=== PATIENT | male | born 1995 | race Caucasian/White ===

== ENCOUNTER 2019-08-02 22:51 | Observation (INO) | payer BC, OTHER ==
--- NOTE | 2019-08-02 23:34 | EDM.PDOC ---
<Jaja Stevens R - Last Filed: 08/02/19 23:30> ED HPI GENERAL MEDICAL PROBLEM - General Chief Complaint: Abdominal Pain Stated Complaint: PT HAS STOMACH PAIN Time Seen by Provider: 08/03/19 00:51 Source of Information: Reports: Patient History Limitations: Reports: No Limitations - History of Present Illness INITIAL COMMENTS - FREE TEXT/NARRATIVE: Presents reporting abdominal pain, nausea and vomiting. The patient states that in 2014 he ingested a foreign body and had a colon perforation. He had a colon resection. Subsequently he had bowel obstructions which cleared without surgery. Later he had an appendectomy and they also "cleaned up the abdomen". At 5 PM today he started with some lower abdominal pain accompanied by nausea and vomiting bile 4. He had a loose brown stool this morning but none since. He denies fever, dysuria. mid abdomen Pain Score (Numeric/FACES): 7 - Related Data Allergies Allergy/AdvReac Type Severity Reaction Status Date / Time No Known Allergies Allergy Verified 08/02/19 23:00 Home Meds: Home Meds . [No Known Home Meds] 08/02/19 [History] Past Medical History HEENT History: Reports: None Cardiovascular History: Reports: None Respiratory History: Reports: None Gastrointestinal History: Reports: Other (See Below) Genitourinary History: Reports: None Musculoskeletal History: Reports: None Psychiatric History: Reports: None Endocrine/Metabolic History: Reports: None Hematologic History: Reports: None Oncologic (Cancer) History: Reports: None Dermatologic History: Reports: None - Infectious Disease History Infectious Disease History: Reports: Chicken Pox - Past Surgical History GI Surgical History: Reports: Appendectomy Other GI Surgeries/Procedures: bowel ressection 2013 Social & Family History - Family History Family Medical History: Noncontributory - Tobacco Use Smoking Status *Q: Current Every Day Smoker Years of Tobacco use: 7 Packs/Tins Daily: 1 - Recreational Drug Use Recreational Drug Use: No ED ROS GENERAL - Review of Systems Review Of Systems: ROS reveals no pertinent complaints other than HPI. ED EXAM, GI/ABD - Physical Exam Exam: See Below Exam Limited By: No Limitations General Appearance: Alert, No Apparent Distress Ears: Normal External Exam Nose: Normal Inspection Throat/Mouth: Normal Inspection Head: Atraumatic, Normocephalic Neck: Normal Inspection Respiratory/Chest: No Respiratory Distress, Lungs Clear, Normal Breath Sounds Cardiovascular: Normal Peripheral Pulses, Regular Rate, Rhythm, No Murmur GI/Abdominal Exam: Normal Bowel Sounds, Soft, No Distention, Tender (Mild across lower abdomen) Back Exam: Normal Inspection Extremities: Normal Inspection Neurological: Alert, Oriented Psychiatric: Normal Affect, Normal Mood Skin Exam: Warm, Dry, Intact, Normal Color, No Rash Lymphatic: No Adenopathy Course - Vital Signs Last Recorded V/S: Last Vital Signs Temp 36.2 C 08/02/19 23:01 Pulse 81 08/02/19 23:01 Resp 14 08/02/19 23:01 BP 130/85 08/02/19 23:01 Pulse Ox 98 08/02/19 23:01 - Orders/Labs/Meds Labs: Laboratory Tests 08/02/19 08/02/19 08/02/19 Range/Units 23:10 23:10 23:52 WBC 8.88 (4.0-11.0) K/uL RBC 4.88 (4.50-5.90) M/uL Hgb 15.2 (13.0-17.0) g/dL Hct 44.0 (38.0-50.0) % MCV 90.2 (80.0-98.0) fL MCH 31.1 (27.0-32.0) pg MCHC 34.5 (31.0-37.0) g/dL RDW Std Deviation 43.0 (28.0-62.0) fl RDW Coeff of Lj 13 (11.0-15.0) % Plt Count 342 (150-400) K/uL MPV 10.30 (7.40-12.00) fL Neut % (Auto) 69.9 (48.0-80.0) % Lymph % (Auto) 16.9 (16.0-40.0) % [place] % (Auto) 7.5 (0.0-15.0) % Eos % (Auto) 5.1 (0.0-7.0) % Baso % (Auto) 0.6 (0.0-1.5) % Neut # (Auto) 6.2 H (1.4-5.7) K/uL Lymph # (Auto) 1.5 (0.6-2.4) K/uL [place] # (Auto) 0.7 (0.0-0.8) K/uL Eos # (Auto) 0.5 (0.0-0.7) K/uL Baso # (Auto) 0.1 (0.0-0.1) K/uL Nucleated RBC % 0.0 /100WBC Nucleated RBCs # 0 K/uL Sodium 141 (136-148) mmol/L Potassium 3.7 (3.5-5.1) mmol/L Chloride 104 (98-107) mmol/L Carbon Dioxide 26.2 (21.0-32.0) mmol/L BUN 16 (7.0-18.0) mg/dL Creatinine 1.2 (0.8-1.3) mg/dL Est Cr Clr Drug Dosing 87.54 mL/min Estimated GFR (MDRD) > 60.0 ml/min Glucose 113 H (74-106) mg/dL Calcium 9.3 (8.5-10.1) mg/dL Total Bilirubin 0.6 (0.2-1.0) mg/dL AST 16 (15-37) IU/L ALT 19 (14-63) IU/L Alkaline Phosphatase 70 (46-116) U/L Total Protein 7.9 (6.4-8.2) g/dL Albumin 4.3 (3.4-5.0) g/dL Globulin 3.6 (2.6-4.0) g/dL Albumin/Globulin Ratio 1.2 (0.9-1.6) Urine Color YELLOW Urine Appearance CLEAR Urine pH 6.0 (5.0-8.0) Ur Specific [place] 1.025 (1.001-1.035) Urine Protein NEGATIVE (NEGATIVE) mg/dL Urine Glucose (UA) NEGATIVE (NEGATIVE) mg/dL Urine Ketones 15 H (NEGATIVE) mg/dL Urine Occult Blood NEGATIVE (NEGATIVE) Urine Nitrite NEGATIVE (NEGATIVE) Urine Bilirubin NEGATIVE (NEGATIVE) Urine Urobilinogen 0.2 (<2.0) EU/dL Ur Leukocyte Esterase NEGATIVE (NEGATIVE) Urine RBC NONE SEEN (0-2/HPF) Urine WBC 0-1 (0-5/HPF) Ur Epithelial Cells RARE (NONE-FEW) Urine Bacteria RARE (NEGATIVE) Urine Mucus LIGHT (NONE-MOD) Meds: Medications Discontinued Medications Generic Name Dose Route Start Last Admin Trade Name Freq PRN Reason Stop Dose Admin Sodium Chloride 1,000 mls @ 999 mls/hr 08/02/19 23:42 08/02/19 23:58 Normal Saline IV 08/03/19 00:42 999 mls/hr STAT ONE Administration Ondansetron HCl 4 mg 08/02/19 23:43 08/02/19 23:58 Zofran IVPUSH 08/02/19 23:44 4 mg ONETIME ONE Administration Departure - Departure Disposition: Refer to Observation Clinical Impression: Small bowel obstruction - Discharge Information Referrals: PCP,None [Primary Care Provider] - Forms: ED Department Discharge <Garry Osborne - Last Filed: 08/03/19 00:51> Course - Vital Signs Text/Narrative:: Patient's emergency murmur courses been unremarkable he is comfortable sleeping repeat abdominal exam is without acute findings CT demonstrates dilated loops of bowel consistent with possible small bowel obstruction small free fluid was noted no other acute findings reported I discussed case with general surgery and hospitalist he'll be admitted for observation with diagnosis of small bowel obstruction Departure - Departure Time of Disposition: 00:51 Condition: Good
[2019-08-02] MEDS ORDERED: Sodium Chloride 0.9% 1,000 ML IV ONE (23:42)
[2019-08-02] MEDS ORDERED: Ondansetron 4 MG/2 ML SDV IVPUSH ONE (23:43)
[2019-08-02 23:44] LABS: BLOOD UREA NITROGEN,BUN 16 mg/dL (7.0-18.0); CARBON DIOXIDE,CO2 26.2 mmol/L (21.0-32.0); CHLORIDE,CL 104 mmol/L (98-107); GLUCOSE RANDOM 113 mg/dL (74-106); POTASSIUM,K 3.7 mmol/L (3.5-5.1); SODIUM,NA 141 mmol/L (136-148)
--- NOTE | 2019-08-03 00:38 | CT ---
INDICATION: Abdominal pain. History of colonic surgery and obstruction. TECHNIQUE: CT abdomen and pelvis without contrast. COMPARISON: None. FINDINGS: Lower chest: Unremarkable. Liver: Normal in contour with an 11 millimeter cyst in the right lobe of the liver. Gallbladder and bile ducts: No stones or inflammation. No biliary dilatation. Pancreas: Unremarkable. No mass or inflammation. Spleen: Normal in size. No masses. Adrenal glands: Normal in size. No nodules. Kidneys: 1 millimeter nonobstructing stone right kidney without evidence of ureteral stone or hydronephrosis. Left kidney is normal in contour without hydronephrosis. GI tract: Stomach is unremarkable. Small free fluid in the deep pelvis with a suture line in the right lower quadrant there are mildly dilated loops of small bowel with transition in the pelvis with the remainder of the small bowel decompressed. Vasculature: Unremarkable. Pelvis: Unremarkable. No pelvic masses. Bones: Unremarkable for age. IMPRESSION: 1. Status post small bowel surgery with dilated loops of small bowel in the pelvis consistent with a small-bowel obstruction. Etiology is likely adhesions. Associated small free fluid. 2. Nephrolithiasis without ureteral stone or hydronephrosis. Please note that all CT scans at this facility use dose modulation, iterative reconstruction, and/or weight-based dosing when appropriate to reduce radiation dose to as low as reasonably achievable. Dictated by Gonzalo Ram MD @ Aug 03 2019 12:31AM Signed by Dr. Gonzalo Ram @ Aug 03 2019 12:36AM
[2019-08-03] MEDS ORDERED: Ondansetron 4 MG/2 ML SDV IVPUSH PRN (02:06)
[2019-08-03] MEDS ORDERED: Morphine 2 MG/ML Syringe IVPUSH PRN (02:07)
[2019-08-03] MEDS: Sodium Chloride 0.9% 1,000 ML IV SCH ×2 (02:54→10:21)
[2019-08-03 05:28] LABS: BLOOD UREA NITROGEN,BUN 13 mg/dL (7.0-18.0); CARBON DIOXIDE,CO2 26.6 mmol/L (21.0-32.0); CHLORIDE,CL 108 mmol/L (98-107); GLUCOSE RANDOM 94 mg/dL (74-106); POTASSIUM,K 3.8 mmol/L (3.5-5.1); SODIUM,NA 143 mmol/L (136-148)
--- NOTE | 2019-08-03 07:54 | PCM.HP.2 ---
H&P History of Present Illness - General Date of Service: 08/03/19 Admit Problem/Dx: Admission Diagnosis/Problem Admission Diagnosis/Problem Small bowel obstruction Source of Information: Patient History Limitations: Reports: No Limitations - History of Present Illness Initial Comments - Free Text/Narative: This 23 year old male with pmh of colon resection after accidentally swallowing wire brush piece in 2008, SBO x 2 afterwards and then appendectomy with lysis of adhesion in 2013 presented to the ED last evening with sudden abdominal pain around 5 pm. He reports the pain is located in his left lower abdomen with associated nausea and vomiting. His last BM was brown more loose than normal and it was yesterday morning. He felt like it was loose but still felt bloated and somewhat constipated. He denies fevers, chills, chest pain or SOB. He has no urinary concerns. No black or bloody stools. He otherwise was doing well prior to this. He rpeorts no other medical history. He drinks alcohol socially, chews tobacco 1/2 tin a day, and no recreational drug use. In the ED labwork WNL. UA negative. Vital signs stable. He was treated with zofran. Abdomen/pelvis CT revealed dilated loops of small bowel in the pelvis consistent with a small bowel obstruction, small free fluid in pelvis. He was admitted observation for SBO. Dr Hoffman consulted. mid abdomen Pain Score (Numeric/FACES): 5 - Related Data Allergies/Adverse Reactions: Allergies Allergy/AdvReac Type Severity Reaction Status Date / Time No Known Allergies Allergy Verified 08/03/19 02:45 Home Medications: Home Meds . [No Known Home Meds] 08/02/19 [History] Past Medical History HEENT History: Reports: None Cardiovascular History: Reports: None. Denies: High Cholesterol, Hypertension Respiratory History: Reports: None. Denies: Asthma Gastrointestinal History: Reports: Bowel Obstruction Genitourinary History: Reports: None Musculoskeletal History: Reports: None Psychiatric History: Reports: None Endocrine/Metabolic History: Reports: None. Denies: Diabetes, Type II, Obesity/ BMI 30+ Hematologic History: Reports: None Oncologic (Cancer) History: Reports: None Dermatologic History: Reports: None - Infectious Disease History Infectious Disease History: Reports: Chicken Pox - Past Surgical History GI Surgical History: Reports: Appendectomy, Lysis of Adhesions (2014 with appendectomy) Other GI Surgeries/Procedures: bowel resection 2008 Social & Family History - Family History Family Medical History: Noncontributory - Tobacco Use Smoking Status *Q: Never Smoker Tobacco Use Within Last Twelve Months: Smokeless Tobacco (1/2 tin daily) Years of Tobacco use: 7 Packs/Tins Daily: 1 - Caffeine Use Caffeine Use: Reports: Soda - Alcohol Use Alcohol Use Frequency: Socially - Recreational Drug Use Recreational Drug Use: No - Living Situation & Occupation 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 Denies: Fever, Chills, Malaise, Weakness HEENT: Reports: No Symptoms. Denies: Headaches, Sinus Congestion, Sore Throat Pulmonary: Reports: No Symptoms. Denies: Shortness of Breath Cardiovascular: Reports: No Symptoms. Denies: Chest Pain Gastrointestinal: Reports: Abdominal Pain (LLQ, feeling improved now. ), Nausea , Vomiting. Denies: Black Stool, Bloody Stool Genitourinary: Reports: No Symptoms. Denies: Dysuria, Frequency, Burning Skin: Reports: No Symptoms Psychiatric: Reports: No Symptoms Neurological: Reports: No Symptoms Hematologic/Lymphatic: Reports: No Symptoms Immunologic: Reports: No Symptoms Exam - Exam Exam: See Below - Vital Signs Vital Signs: Last Vital Signs Temp 98.4 F 08/03/19 07:49 Pulse 63 08/03/19 07:49 Resp 16 08/03/19 07:49 BP 107/44 L 08/03/19 07:49 Pulse Ox 96 08/03/19 07:49 Weight: 65.635 kg - Exam General: Alert, Oriented, Cooperative HEENT: Conjunctiva Clear, Mucosa Moist & [place], Posterior Pharynx Clear Lungs: Clear to Auscultation, Normal Respiratory Effort Cardiovascular: Regular Rate, Regular Rhythm GI/Abdominal Exam: Normal Bowel Sounds, Soft, No Distention, No Mass, Tender ( slight tenderness to LLQ) Back Exam: Normal Inspection, Full Range of Motion Extremities: Normal Inspection, Normal Range of Motion, Non-Tender, No Pedal Edema Neuro Extensive - Mental Status: Alert, Oriented x3 Neuro Extensive - Motor, Sensory, Reflexes: CN II-XII Intact, Normal Gait Psychiatric: Alert, Normal Affect, Normal Mood - Patient Data Lab Results Last 24 hrs: Laboratory Results - last 24 hr 08/02/19 08/02/19 08/02/19 Range/Units 23:10 23:10 23:52 WBC 8.88 (4.0-11.0) K/uL RBC 4.88 (4.50-5.90) M/uL Hgb 15.2 (13.0-17.0) g/dL Hct 44.0 (38.0-50.0) % MCV 90.2 (80.0-98.0) fL MCH 31.1 (27.0-32.0) pg MCHC 34.5 (31.0-37.0) g/dL RDW Std Deviation 43.0 (28.0-62.0) fl RDW Coeff of Lj 13 (11.0-15.0) % Plt Count 342 (150-400) K/uL MPV 10.30 (7.40-12.00) fL Neut % (Auto) 69.9 (48.0-80.0) % Lymph % (Auto) 16.9 (16.0-40.0) % [place] % (Auto) 7.5 (0.0-15.0) % Eos % (Auto) 5.1 (0.0-7.0) % Baso % (Auto) 0.6 (0.0-1.5) % Neut # (Auto) 6.2 H (1.4-5.7) K/uL Lymph # (Auto) 1.5 (0.6-2.4) K/uL [place] # (Auto) 0.7 (0.0-0.8) K/uL Eos # (Auto) 0.5 (0.0-0.7) K/uL Baso # (Auto) 0.1 (0.0-0.1) K/uL Nucleated RBC % 0.0 /100WBC Nucleated RBCs # 0 K/uL Sodium 141 (136-148) mmol/L Potassium 3.7 (3.5-5.1) mmol/L Chloride 104 (98-107) mmol/L Carbon Dioxide 26.2 (21.0-32.0) mmol/L BUN 16 (7.0-18.0) mg/dL Creatinine 1.2 (0.8-1.3) mg/dL Est Cr Clr Drug Dosing 87.54 mL/min Estimated GFR (MDRD) > 60.0 ml/min Glucose 113 H (74-106) mg/dL Calcium 9.3 (8.5-10.1) mg/dL Total Bilirubin 0.6 (0.2-1.0) mg/dL AST 16 (15-37) IU/L ALT 19 (14-63) IU/L Alkaline Phosphatase 70 (46-116) U/L Total Protein 7.9 (6.4-8.2) g/dL Albumin 4.3 (3.4-5.0) g/dL Globulin 3.6 (2.6-4.0) g/dL Albumin/Globulin Ratio 1.2 (0.9-1.6) Urine Color YELLOW Urine Appearance CLEAR Urine pH 6.0 (5.0-8.0) Ur Specific [place] 1.025 (1.001-1.035) Urine Protein NEGATIVE (NEGATIVE) mg/dL Urine Glucose (UA) NEGATIVE (NEGATIVE) mg/dL Urine Ketones 15 H (NEGATIVE) mg/dL Urine Occult Blood NEGATIVE (NEGATIVE) Urine Nitrite NEGATIVE (NEGATIVE) Urine Bilirubin NEGATIVE (NEGATIVE) Urine Urobilinogen 0.2 (<2.0) EU/dL Ur Leukocyte Esterase NEGATIVE (NEGATIVE) Urine RBC NONE SEEN (0-2/HPF) Urine WBC 0-1 (0-5/HPF) Ur Epithelial Cells RARE (NONE-FEW) Urine Bacteria RARE (NEGATIVE) Urine Mucus LIGHT (NONE-MOD) 08/03/19 08/03/19 Range/Units 05:05 05:05 WBC 7.63 (4.0-11.0) K/uL RBC 4.47 L (4.50-5.90) M/uL Hgb 13.7 (13.0-17.0) g/dL Hct 40.4 (38.0-50.0) % MCV 90.4 (80.0-98.0) fL MCH 30.6 (27.0-32.0) pg MCHC 33.9 (31.0-37.0) g/dL RDW Std Deviation 42.7 (28.0-62.0) fl RDW Coeff of Lj 13 (11.0-15.0) % Plt Count 336 (150-400) K/uL MPV 10.20 (7.40-12.00) fL Neut % (Auto) 64.2 (48.0-80.0) % Lymph % (Auto) 23.7 (16.0-40.0) % [place] % (Auto) 6.6 (0.0-15.0) % Eos % (Auto) 4.8 (0.0-7.0) % Baso % (Auto) 0.7 (0.0-1.5) % Neut # (Auto) 4.9 (1.4-5.7) K/uL Lymph # (Auto) 1.8 (0.6-2.4) K/uL [place] # (Auto) 0.5 (0.0-0.8) K/uL Eos # (Auto) 0.4 (0.0-0.7) K/uL Baso # (Auto) 0.1 (0.0-0.1) K/uL Nucleated RBC % 0.0 /100WBC Nucleated RBCs # 0 K/uL Sodium 143 (136-148) mmol/L Potassium 3.8 (3.5-5.1) mmol/L Chloride 108 H (98-107) mmol/L Carbon Dioxide 26.6 (21.0-32.0) mmol/L BUN 13 (7.0-18.0) mg/dL Creatinine 1.0 (0.8-1.3) mg/dL Est Cr Clr Drug Dosing 104.83 mL/min Estimated GFR (MDRD) > 60.0 ml/min Glucose 94 (74-106) mg/dL Calcium 8.2 L (8.5-10.1) mg/dL Total Bilirubin (0.2-1.0) mg/dL AST (15-37) IU/L ALT (14-63) IU/L Alkaline Phosphatase (46-116) U/L Total Protein (6.4-8.2) g/dL Albumin (3.4-5.0) g/dL Globulin (2.6-4.0) g/dL Albumin/Globulin Ratio (0.9-1.6) Urine Color Urine Appearance Urine pH (5.0-8.0) Ur Specific [place] (1.001-1.035) Urine Protein (NEGATIVE) mg/dL Urine Glucose (UA) (NEGATIVE) mg/dL Urine Ketones (NEGATIVE) mg/dL Urine Occult Blood (NEGATIVE) Urine Nitrite (NEGATIVE) Urine Bilirubin (NEGATIVE) Urine Urobilinogen (<2.0) EU/dL Ur Leukocyte Esterase (NEGATIVE) Urine RBC (0-2/HPF) Urine WBC (0-5/HPF) Ur Epithelial Cells (NONE-FEW) Urine Bacteria (NEGATIVE) Urine Mucus (NONE-MOD) Result Diagrams: 08/03/19 05:05 08/03/19 05:05 - Problem List (1) Small bowel obstruction SNOMED Code(s): 221924458 ICD Code: K56.609 - UNSP INTESTNL OBST, UNSP TO PARTIAL VERSUS COMPLETE OBST Status: Acute Priority: Medium Current Visit: Yes Problem List Initiated/Reviewed/Updated: Yes Orders Last 24hrs: Active Orders 24 hr Category Date Time Status Patient Status [ADT] Stat ADT 08/03/19 00:52 Active Notify Provider Consults [RC] ASDIRECTED Care 08/03/19 00:54 Active Consult to Physician [CONS] Stat Cons 08/03/19 00:53 Active NPO Now [Nothing per Oral Now Diet] [DIET] Diet 08/03/19 Breakfast Active Morphine Med 08/03/19 02:07 Active 2 mg IVPUSH Q2H PRN Ondansetron [Zofran] Med 08/03/19 02:06 Active 4 mg IVPUSH Q4H PRN Sodium Chloride 0.9% [Normal Saline] 1,000 ml Med 08/03/19 02:15 Active IV ASDIRECTED Medication Orders Sodium Chloride (Normal Saline) 1,000 mls @ 125 mls/hr IV ASDIRECTED BRIGIDA Last Admin: 08/03/19 02:54 Dose: 125 mls/hr Morphine Sulfate (Morphine) 2 mg IVPUSH Q2H PRN PRN Reason: Pain Ondansetron HCl (Zofran) 4 mg IVPUSH Q4H PRN PRN Reason: Nausea Assessment/Plan Comment:: This 23 year old male with pmh of SBO and bowel resection admitted for SBO 1. SBO: Dr Hoffman, General surgery consulted. Abd flat and upright this morning, reveals normal bowel gas pattern. bowel sounds normal this am. Not passing gas or having BM yet. Feeling improved. No longer nauseated and pain is improving. NPO with ice chips. Repeat Abd xray in am. Monitor labwork. I appreciate Dr Hoffman's assistance with this patient. Advance diet per recommendations VTE prophylaxis: SCDs and encourage ambulation. Dispo: 1-2 days. - Mortality Measure Prognosis:: Good
--- NOTE | 2019-08-03 09:03 | PCM.CONS ---
H&P History of Present Illness - General Date of Service: 08/03/19 Admit Problem/Dx: Admission Diagnosis/Problem Admission Diagnosis/Problem Abdominal pain with bloatingk, nausea and vomiting. Hx of perforated small bowel requiring laparotomy in 2009 and laparoscopic appendectomy in 2013. Source of Information: Patient History Limitations: Reports: No Limitations - History of Present Illness Initial Comments - Free Text/Narative: 23 y/o gentleman admitted via ER early this am with abdominal bloating and nausea and vomiting. Hx of small obstruction in the past. In 2009 he underwent an emergency laparotomy for perforated small bowel from a wire bristle off a barbecue grill brush. Laparoscopic appendectomy in 2013. Has had episodes of partial SBO in the past. States he is feeling much better this am. Rates pain "0-1". No nausea or vomiting. Symptom Onset Date: 08/02/19 Duration of Symptoms: Reports: Hour(s):, Recurring Location: Reports: Abdomen Quality: Reports: Same as Previous Episode Improves with: Reports: None Worsens with: Reports: None Context: Reports: Sick Contact Associated Symptoms: Reports: Loss of Appetite, Nausea/Vomiting mid abdomen Pain Score (Numeric/FACES): 5 - Related Data Allergies/Adverse Reactions: Allergies Allergy/AdvReac Type Severity Reaction Status Date / Time No Known Allergies Allergy Verified 08/03/19 02:45 Home Medications: Home Meds . [No Known Home Meds] 08/02/19 [History] Past Medical History HEENT History: Reports: None Cardiovascular History: Reports: None Respiratory History: Reports: None Gastrointestinal History: Reports: Other (See Below) Genitourinary History: Reports: None Musculoskeletal History: Reports: None Psychiatric History: Reports: None Endocrine/Metabolic History: Reports: None Hematologic History: Reports: None Oncologic (Cancer) History: Reports: None Dermatologic History: Reports: None - Infectious Disease History Infectious Disease History: Reports: Chicken Pox - Past Surgical History GI Surgical History: Reports: Appendectomy Other GI Surgeries/Procedures: bowel ressection 2013 Social & Family History - Family History Family Medical History: Noncontributory - Tobacco Use Smoking Status *Q: Never Smoker Years of Tobacco use: 7 Packs/Tins Daily: 1 - Caffeine Use Caffeine Use: Reports: Soda - Recreational Drug Use Recreational Drug Use: No H&P Review of Systems - Review of Systems: Review Of Systems: See Below General: Reports: Decreased Appetite. Denies: Fever, Chills, Malaise HEENT: Reports: No Symptoms Pulmonary: Denies: Shortness of Breath, Wheezing Cardiovascular: Denies: Chest Pain, Palpitations Gastrointestinal: Reports: Abdominal Pain, Anorexia, Constipation, Distension ( resolved). Denies: Diarrhea, Flatus Genitourinary: Denies: Dysuria, Frequency, Burning Musculoskeletal: Reports: No Symptoms Skin: Reports: No Symptoms Neurological: Reports: No Symptoms Hematologic/Lymphatic: Reports: No Symptoms Immunologic: Reports: No Symptoms Exam - Exam Exam: See Below - Vital Signs Vital Signs: Last Vital Signs Temp 98.4 F 08/03/19 07:49 Pulse 63 08/03/19 07:49 Resp 16 08/03/19 07:49 BP 107/44 L 08/03/19 07:49 Pulse Ox 96 08/03/19 07:49 Weight: 144 lb 11.2 oz - Exam Quality Assessment: No: Supplemental Oxygen General: Alert, Oriented, Cooperative, Mild Distress HEENT: PERRLA, Hearing Intact, Mucosa Moist & [place], Nares Patent, Normal Nasal Septum, Posterior Pharynx Clear, Conjunctiva Clear, EOMI, EACs Clear, TMs Clear Neck: Supple, Trachea Midline, 2 Lungs: Clear to Auscultation, Normal Respiratory Effort Cardiovascular: Regular Rate, Regular Rhythm GI/Abdominal Exam: Soft, Non-Tender, No Distention, Abnormal Bowel Sounds ( hypoactive). No: Guarding, Rigid, Rebound, Mass (Male) Exam: Deferred Rectal (Males) Exam: Deferred Back Exam: Normal Inspection, Full Range of Motion Extremities: Normal Inspection, Normal Range of Motion, Non-Tender, No Pedal Edema, Normal Capillary Refill Peripheral Pulses: 4+: Posterior Tibial (L), Posterior Tibial (R), Dorsalis Pedis (L), Dorsalis Pedis (R) Skin: Warm, Dry, Intact Neurological: Cranial Nerves Intact Neuro Extensive - Mental Status: Alert, Oriented x3, Normal Mood/Affect, Normal Cognition Psychiatric: Alert, Normal Affect, Normal Mood - Patient Data Lab Results Last 24 hrs: Laboratory Results - last 24 hr 08/02/19 08/02/19 08/02/19 Range/Units 23:10 23:10 23:52 WBC 8.88 (4.0-11.0) K/uL RBC 4.88 (4.50-5.90) M/uL Hgb 15.2 (13.0-17.0) g/dL Hct 44.0 (38.0-50.0) % MCV 90.2 (80.0-98.0) fL MCH 31.1 (27.0-32.0) pg MCHC 34.5 (31.0-37.0) g/dL RDW Std Deviation 43.0 (28.0-62.0) fl RDW Coeff of Lj 13 (11.0-15.0) % Plt Count 342 (150-400) K/uL MPV 10.30 (7.40-12.00) fL Neut % (Auto) 69.9 (48.0-80.0) % Lymph % (Auto) 16.9 (16.0-40.0) % [place] % (Auto) 7.5 (0.0-15.0) % Eos % (Auto) 5.1 (0.0-7.0) % Baso % (Auto) 0.6 (0.0-1.5) % Neut # (Auto) 6.2 H (1.4-5.7) K/uL Lymph # (Auto) 1.5 (0.6-2.4) K/uL [place] # (Auto) 0.7 (0.0-0.8) K/uL Eos # (Auto) 0.5 (0.0-0.7) K/uL Baso # (Auto) 0.1 (0.0-0.1) K/uL Nucleated RBC % 0.0 /100WBC Nucleated RBCs # 0 K/uL Sodium 141 (136-148) mmol/L Potassium 3.7 (3.5-5.1) mmol/L Chloride 104 (98-107) mmol/L Carbon Dioxide 26.2 (21.0-32.0) mmol/L BUN 16 (7.0-18.0) mg/dL Creatinine 1.2 (0.8-1.3) mg/dL Est Cr Clr Drug Dosing 87.54 mL/min Estimated GFR (MDRD) > 60.0 ml/min Glucose 113 H (74-106) mg/dL Calcium 9.3 (8.5-10.1) mg/dL Total Bilirubin 0.6 (0.2-1.0) mg/dL AST 16 (15-37) IU/L ALT 19 (14-63) IU/L Alkaline Phosphatase 70 (46-116) U/L Total Protein 7.9 (6.4-8.2) g/dL Albumin 4.3 (3.4-5.0) g/dL Globulin 3.6 (2.6-4.0) g/dL Albumin/Globulin Ratio 1.2 (0.9-1.6) Urine Color YELLOW Urine Appearance CLEAR Urine pH 6.0 (5.0-8.0) Ur Specific [place] 1.025 (1.001-1.035) Urine Protein NEGATIVE (NEGATIVE) mg/dL Urine Glucose (UA) NEGATIVE (NEGATIVE) mg/dL Urine Ketones 15 H (NEGATIVE) mg/dL Urine Occult Blood NEGATIVE (NEGATIVE) Urine Nitrite NEGATIVE (NEGATIVE) Urine Bilirubin NEGATIVE (NEGATIVE) Urine Urobilinogen 0.2 (<2.0) EU/dL Ur Leukocyte Esterase NEGATIVE (NEGATIVE) Urine RBC NONE SEEN (0-2/HPF) Urine WBC 0-1 (0-5/HPF) Ur Epithelial Cells RARE (NONE-FEW) Urine Bacteria RARE (NEGATIVE) Urine Mucus LIGHT (NONE-MOD) 08/03/19 08/03/19 Range/Units 05:05 05:05 WBC 7.63 (4.0-11.0) K/uL RBC 4.47 L (4.50-5.90) M/uL Hgb 13.7 (13.0-17.0) g/dL Hct 40.4 (38.0-50.0) % MCV 90.4 (80.0-98.0) fL MCH 30.6 (27.0-32.0) pg MCHC 33.9 (31.0-37.0) g/dL RDW Std Deviation 42.7 (28.0-62.0) fl RDW Coeff of Lj 13 (11.0-15.0) % Plt Count 336 (150-400) K/uL MPV 10.20 (7.40-12.00) fL Neut % (Auto) 64.2 (48.0-80.0) % Lymph % (Auto) 23.7 (16.0-40.0) % [place] % (Auto) 6.6 (0.0-15.0) % Eos % (Auto) 4.8 (0.0-7.0) % Baso % (Auto) 0.7 (0.0-1.5) % Neut # (Auto) 4.9 (1.4-5.7) K/uL Lymph # (Auto) 1.8 (0.6-2.4) K/uL [place] # (Auto) 0.5 (0.0-0.8) K/uL Eos # (Auto) 0.4 (0.0-0.7) K/uL Baso # (Auto) 0.1 (0.0-0.1) K/uL Nucleated RBC % 0.0 /100WBC Nucleated RBCs # 0 K/uL Sodium 143 (136-148) mmol/L Potassium 3.8 (3.5-5.1) mmol/L Chloride 108 H (98-107) mmol/L Carbon Dioxide 26.6 (21.0-32.0) mmol/L BUN 13 (7.0-18.0) mg/dL Creatinine 1.0 (0.8-1.3) mg/dL Est Cr Clr Drug Dosing 104.83 mL/min Estimated GFR (MDRD) > 60.0 ml/min Glucose 94 (74-106) mg/dL Calcium 8.2 L (8.5-10.1) mg/dL Total Bilirubin (0.2-1.0) mg/dL AST (15-37) IU/L ALT (14-63) IU/L Alkaline Phosphatase (46-116) U/L Total Protein (6.4-8.2) g/dL Albumin (3.4-5.0) g/dL Globulin (2.6-4.0) g/dL Albumin/Globulin Ratio (0.9-1.6) Urine Color Urine Appearance Urine pH (5.0-8.0) Ur Specific [place] (1.001-1.035) Urine Protein (NEGATIVE) mg/dL Urine Glucose (UA) (NEGATIVE) mg/dL Urine Ketones (NEGATIVE) mg/dL Urine Occult Blood (NEGATIVE) Urine Nitrite (NEGATIVE) Urine Bilirubin (NEGATIVE) Urine Urobilinogen (<2.0) EU/dL Ur Leukocyte Esterase (NEGATIVE) Urine RBC (0-2/HPF) Urine WBC (0-5/HPF) Ur Epithelial Cells (NONE-FEW) Urine Bacteria (NEGATIVE) Urine Mucus (NONE-MOD) Result Diagrams: 08/03/19 05:05 08/03/19 05:05 Consult PN Assessment/Plan Procedures: Procedures MRI JNT OF LWR EXTRE W/O DYE (04/22/18) (1) Small bowel obstruction SNOMED Code(s): 643892122 Code(s): K56.609 - UNSP INTESTNL OBST, UNSP TO PARTIAL VERSUS COMPLETE OBST Priority: Medium Current Visit: Yes Problem List Initiated/Reviewed/Updated: Yes Plan: Suspect he may have had a partial SBO. This morning his abdomen is soft and flat. No tenderness. Bowel sounds are hypoactive. RECOMMEND: Flat/upright abdomen serially. Once he starts passing gas, I think he could start liquids and advance as tolerated.
--- NOTE | 2019-08-03 09:55 | CR ---
Indication: Small bowel obstruction Technique: Abdomen 3 view Comparison: CT abdomen pelvis August 02, 2019 Findings/Impression: Bowel: Bowel pattern appears normal. No obstructive changes by x-ray. Minimal colonic stool. Soft tissues: No sign of free air. No sign of soft tissue mass. No suspicious calcifications. Bones: Unremarkable for age. Dictated by Ronnie Trent MD @ Aug 03 2019 9:48AM Signed by Dr. Ronnie Trent @ Aug 03 2019 9:53AM
--- NOTE | 2019-08-03 16:52 | PCM.DCSUM1 ---
Discharge Summary - Hospital Course Brief History: This 23 year old male with pmh of colon resection after accidentally swallowing wire brush piece in 2008, SBO x 2 afterwards and then appendectomy with lysis of adhesion in 2013 presented to the ED last evening with sudden abdominal pain around 5 pm. He reports the pain is located in his left lower abdomen with associated nausea and vomiting. His last BM was brown more loose than normal and it was yesterday morning. He felt like it was loose but still felt bloated and somewhat constipated. He denies fevers, chills, chest pain or SOB. He has no urinary concerns. No black or bloody stools. He otherwise was doing well prior to this. He rpeorts no other medical history. He drinks alcohol socially, chews tobacco 1/2 tin a day, and no recreational drug use. In the ED labwork WNL. UA negative. Vital signs stable. He was treated with zofran. Abdomen/pelvis CT revealed dilated loops of small bowel in the pelvis consistent with a small bowel obstruction, small free fluid in pelvis. He was admitted observation for SBO. Dr Hoffman consulted. Modified [place] Scale: No Symptoms at All Modified [place] Scale Score: 0 - Discharge Data Discharge Date: 08/03/19 Discharge Disposition: Home, Self-Care 01 Condition: Stable - Referral to Home Health Primary Care Physician: PCP None - Discharge Diagnosis/Problem(s) (1) Small bowel obstruction SNOMED Code(s): 694723602 ICD Code: K56.609 - UNSP INTESTNL OBST, UNSP TO PARTIAL VERSUS COMPLETE OBST Status: Acute Priority: Medium Current Visit: Yes - Patient Summary/Data Consults: Consultations 08/03/19 00:53 Consult to Physician [CONS] Stat - Patient Instructions Diet: Full Liquid Diet, GI Soft/Low Residue/Low Fiber Diet, Other: FUL for 24 hours slowly advance to soft GI low fiber Activity: As Tolerated Showering/Bathing: May Shower Notify Provider of: Fever, Increased Pain, Swelling and Redness, Drainage, Nausea and/or Vomiting - Discharge Plan *PRESCRIPTION DRUG MONITORING PROGRAM REVIEWED*: Not Applicable *COPY OF PRESCRIPTION DRUG MONITORING REPORT IN PATIENT PHIL: Not Applicable Home Medications: Home Meds . [No Known Home Meds] 08/02/19 [History] Oxygen Therapy Mode: Room Air Patient Handouts: Small Bowel Obstruction, [id number] Referrals: Denny Rogers MD [Physician] - 08/10/19 9:30 am (Arrive 15 minutes early with photo ID and insurarnce card.) - Discharge Summary/Plan Comment DC Time >30 min.: No Discharge Summary/Plan Comment: Admitting Diagnoses: SBO Discharge Diagnoses: SBO- resolved Other H Bowel resection 2008 Appendectomy with lysis of adhesion 2013 Hx SBO Stuart was admitted and kept on bowel rest with IVFs. This morning pain was nearly gone, only mild tenderness. He was treated with only 1 dose of Zofran in the ED, no pain medications. Dr Hoffman was consulted and agreed with conservative therapy. This afternoon, he was ambulating in hallway doing well. Started passing gas and pain is gone. Diet was advances to CL diet. He tolerated this well with no nausea or vomiting. He is requesting discharge home this evening. He feels good and really does not want to stay another night. I spoke with Dr Hoffman, Abd xray this morning showed no further evidence of SBO. He feels ok with discharge, recommended FL to soft diet. He ws educated to return to the ED or clinic if concerns should arise. He is to follow up with PCP in 1 week to insure he is continuing to improve. - General Info Date of Service: 08/03/19 Admission Dx/Problem (Free Text: Admission Diagnosis/Problem Admission Diagnosis/Problem Small bowel obstruction Subjective Update: Doing well after CL diet, requesting discharge home. No abdominal pain or nausea. - Patient Data Vitals - Most Recent: Last Vital Signs Temp 98 F 08/03/19 16:00 Pulse 64 08/03/19 16:00 Resp 16 08/03/19 16:00 BP 110/57 L 08/03/19 16:00 Pulse Ox 97 08/03/19 16:00 Weight - Most Recent: 65.635 kg I&O - Last 24 hours: Intake & Output 08/03/19 08/03/19 08/03/19 06:59 14:59 22:59 Intake Total 88 2052 Output Total 0 400 Balance 88 1652 Lab Results - Last 24 hrs: Laboratory Results - last 24 hr 08/02/19 08/02/19 08/02/19 Range/Units 23:10 23:10 23:52 WBC 8.88 (4.0-11.0) K/uL RBC 4.88 (4.50-5.90) M/uL Hgb 15.2 (13.0-17.0) g/dL Hct 44.0 (38.0-50.0) % MCV 90.2 (80.0-98.0) fL MCH 31.1 (27.0-32.0) pg MCHC 34.5 (31.0-37.0) g/dL RDW Std Deviation 43.0 (28.0-62.0) fl RDW Coeff of Lj 13 (11.0-15.0) % Plt Count 342 (150-400) K/uL MPV 10.30 (7.40-12.00) fL Neut % (Auto) 69.9 (48.0-80.0) % Lymph % (Auto) 16.9 (16.0-40.0) % [place] % (Auto) 7.5 (0.0-15.0) % Eos % (Auto) 5.1 (0.0-7.0) % Baso % (Auto) 0.6 (0.0-1.5) % Neut # (Auto) 6.2 H (1.4-5.7) K/uL Lymph # (Auto) 1.5 (0.6-2.4) K/uL [place] # (Auto) 0.7 (0.0-0.8) K/uL Eos # (Auto) 0.5 (0.0-0.7) K/uL Baso # (Auto) 0.1 (0.0-0.1) K/uL Nucleated RBC % 0.0 /100WBC Nucleated RBCs # 0 K/uL Sodium 141 (136-148) mmol/L Potassium 3.7 (3.5-5.1) mmol/L Chloride 104 (98-107) mmol/L Carbon Dioxide 26.2 (21.0-32.0) mmol/L BUN 16 (7.0-18.0) mg/dL Creatinine 1.2 (0.8-1.3) mg/dL Est Cr Clr Drug Dosing 87.54 mL/min Estimated GFR (MDRD) > 60.0 ml/min Glucose 113 H (74-106) mg/dL Calcium 9.3 (8.5-10.1) mg/dL Total Bilirubin 0.6 (0.2-1.0) mg/dL AST 16 (15-37) IU/L ALT 19 (14-63) IU/L Alkaline Phosphatase 70 (46-116) U/L Total Protein 7.9 (6.4-8.2) g/dL Albumin 4.3 (3.4-5.0) g/dL Globulin 3.6 (2.6-4.0) g/dL Albumin/Globulin Ratio 1.2 (0.9-1.6) Urine Color YELLOW Urine Appearance CLEAR Urine pH 6.0 (5.0-8.0) Ur Specific [place] 1.025 (1.001-1.035) Urine Protein NEGATIVE (NEGATIVE) mg/dL Urine Glucose (UA) NEGATIVE (NEGATIVE) mg/dL Urine Ketones 15 H (NEGATIVE) mg/dL Urine Occult Blood NEGATIVE (NEGATIVE) Urine Nitrite NEGATIVE (NEGATIVE) Urine Bilirubin NEGATIVE (NEGATIVE) Urine Urobilinogen 0.2 (<2.0) EU/dL Ur Leukocyte Esterase NEGATIVE (NEGATIVE) Urine RBC NONE SEEN (0-2/HPF) Urine WBC 0-1 (0-5/HPF) Ur Epithelial Cells RARE (NONE-FEW) Urine Bacteria RARE (NEGATIVE) Urine Mucus LIGHT (NONE-MOD) 08/03/19 08/03/19 Range/Units 05:05 05:05 WBC 7.63 (4.0-11.0) K/uL RBC 4.47 L (4.50-5.90) M/uL Hgb 13.7 (13.0-17.0) g/dL Hct 40.4 (38.0-50.0) % MCV 90.4 (80.0-98.0) fL MCH 30.6 (27.0-32.0) pg MCHC 33.9 (31.0-37.0) g/dL RDW Std Deviation 42.7 (28.0-62.0) fl RDW Coeff of Lj 13 (11.0-15.0) % Plt Count 336 (150-400) K/uL MPV 10.20 (7.40-12.00) fL Neut % (Auto) 64.2 (48.0-80.0) % Lymph % (Auto) 23.7 (16.0-40.0) % [place] % (Auto) 6.6 (0.0-15.0) % Eos % (Auto) 4.8 (0.0-7.0) % Baso % (Auto) 0.7 (0.0-1.5) % Neut # (Auto) 4.9 (1.4-5.7) K/uL Lymph # (Auto) 1.8 (0.6-2.4) K/uL [place] # (Auto) 0.5 (0.0-0.8) K/uL Eos # (Auto) 0.4 (0.0-0.7) K/uL Baso # (Auto) 0.1 (0.0-0.1) K/uL Nucleated RBC % 0.0 /100WBC Nucleated RBCs # 0 K/uL Sodium 143 (136-148) mmol/L Potassium 3.8 (3.5-5.1) mmol/L Chloride 108 H (98-107) mmol/L Carbon Dioxide 26.6 (21.0-32.0) mmol/L BUN 13 (7.0-18.0) mg/dL Creatinine 1.0 (0.8-1.3) mg/dL Est Cr Clr Drug Dosing 104.83 mL/min Estimated GFR (MDRD) > 60.0 ml/min Glucose 94 (74-106) mg/dL Calcium 8.2 L (8.5-10.1) mg/dL Total Bilirubin (0.2-1.0) mg/dL AST (15-37) IU/L ALT (14-63) IU/L Alkaline Phosphatase (46-116) U/L Total Protein (6.4-8.2) g/dL Albumin (3.4-5.0) g/dL Globulin (2.6-4.0) g/dL Albumin/Globulin Ratio (0.9-1.6) Urine Color Urine Appearance Urine pH (5.0-8.0) Ur Specific [place] (1.001-1.035) Urine Protein (NEGATIVE) mg/dL Urine Glucose (UA) (NEGATIVE) mg/dL Urine Ketones (NEGATIVE) mg/dL Urine Occult Blood (NEGATIVE) Urine Nitrite (NEGATIVE) Urine Bilirubin (NEGATIVE) Urine Urobilinogen (<2.0) EU/dL Ur Leukocyte Esterase (NEGATIVE) Urine RBC (0-2/HPF) Urine WBC (0-5/HPF) Ur Epithelial Cells (NONE-FEW) Urine Bacteria (NEGATIVE) Urine Mucus (NONE-MOD) Med Orders - Current: Current Medications Sodium Chloride (Normal Saline) 1,000 mls @ 125 mls/hr IV [facility] Last Admin: 08/03/19 10:21 Dose: 125 mls/hr Morphine Sulfate (Morphine) 2 mg IVPUSH Q2H PRN PRN Reason: Pain Ondansetron HCl (Zofran) 4 mg IVPUSH Q4H PRN PRN Reason: Nausea Discontinued Medications Sodium Chloride (Normal Saline) 1,000 mls @ 999 mls/hr IV STAT ONE Stop: 08/03/19 00:42 Last Admin: 08/02/19 23:58 Dose: 999 mls/hr Ondansetron HCl (Zofran) 4 mg IVPUSH ONETIME ONE Stop: 08/02/19 23:44 Last Admin: 08/02/19 23:58 Dose: 4 mg
== END 2019-08-03 17:10 | disposition home or self-care (01) ==
LOC: MW.ED 22:51 → MW.MS 08-03 00:52
PROVIDERS: ADMIT Internal Medicine; ATTEND Internal Medicine
DX: K56.609 Unspecified intestinal obstruction, unspecified as to partial versus complete obstruction (principal); Z90.49 Acquired absence of other specified parts of digestive tract
CPT/HCPCS: 36415; 74019; 74176; 80048; 80053; 81001; 85025; 96361; 96374; 99285; G0378; J2405; J7040; 99284